=== PATIENT | female | born 1985 | race American Indian/Alaskan Native ===

== ENCOUNTER 2018-07-14 08:53 | Emergency (ER) | payer MEDICAID, OTHER ==
[2018-07-14 09:08] VITALS: BMI 25.3
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
--- NOTE | 2018-07-14 10:55 | CT ---
Date of service: 07/14/2018 PROCEDURE: CT HEAD WITHOUT CONTRAST. HISTORY: headache COMPARISON: None available. TECHNIQUE: Axial computed tomography images were obtained through the head/brain without intravenous contrast. Radiation dose: Total exam DLP = 755.78 mGy-cm. This CT exam was performed using one or more of the following dose reduction techniques: Automated exposure control, adjustment of the mA and/or kV according to patient size, and/or use of iterative reconstruction technique. FINDINGS: HEMORRHAGE: No intracranial hemorrhage. BRAIN: No mass effect or edema. No atrophy or chronic microvascular ischemic changes. VENTRICLES: Unremarkable. No hydrocephalus. CALVARIUM: Unremarkable. PARANASAL SINUSES: Chronic pansinusitis, mild. MASTOID AIR CELLS: Unremarkable as visualized. No inflammatory changes. OTHER FINDINGS: None. IMPRESSION: Mild chronic pansinusitis. No intracranial mass, hemorrhage or evidence of acute infarct
[2018-07-14 12:03] VITALS: BP 113/79; PULSE 72; RESP 16; TEMP 98.3; O2SAT 100
== END 2018-07-14 12:04 | disposition home or self-care (01) ==
LOC: H.ER 08:53
DX: R51 Headache (principal); J32.4 Chronic pansinusitis
CPT/HCPCS: 70450; 81025; 96372; 99285; J1885